=== PATIENT | male | born 2000 | race Caucasian/White ===

== ENCOUNTER 2024-06-29 12:45 | Emergency (ER) | payer OTHER, SELFPAY ==
[2024-06-29 12:46] VITALS: BP 152/101; PULSE 89; RESP 16; TEMP 36.8; O2SAT 99; BMI 31.7
--- NOTE | 2024-06-29 13:18 | CT_ITS ---
STUDY: CT ABDOMEN AND PELVIS WITH AND WITHOUT CONTRAST REASON FOR EXAM: Male, 24 years old. Rectal bleeding, abd pain RADIATION DOSAGE (If Supplied By Facility): CTDIvol = ( 18.65 ) mGy, DLP = ( 2365.69 ) mGycm TECHNIQUE: Transaxial images were obtained from the dome of the diaphragm to the symphysis pubis with oral contrast. Oral Gastrografin was administered. Sagittal and coronal images were reconstructed. Individualized dose optimization techniques were used for this CT. COMPARISON: None. FINDINGS: The visualized lung bases are unremarkable. The visualized portions of the heart are within normal limits. There is decreased attenuation of the liver consistent with steatosis. Normal gallbladder and extrahepatic biliary system. Normal spleen. Normal pancreas. Normal bilateral adrenal glands. Normal right kidney. Normal left kidney. Normal visualized stomach. Normal small intestine. There are scattered colonic diverticula consistent with diverticulosis. The appendix is visualized and appears normal. Normal abdominal aorta. Normal inferior vena cava. Normal retroperitoneum. Normal urinary bladder. Normal abdominal wall. Straightening of the normal lumbar lordosis. CT/CT Abd/Pelvis W/WO Contrast IMPRESSION: Diffuse fatty infiltration of the liver. Scattered sigmoid diverticula. Electronically Signed: Huey Burns MD at 15:27 EST ,
--- NOTE | 2024-06-29 13:22 | ED.VIS.GI ---
HPI <Dr. Marc Salgado DO - Last Filed: 06/29/24 15:29> HPI - GI History of Present Illness Chief Complaint: GI Bleed Informant: patient Narrative Narrative: Presents with bright red blood per rectum since yesterday. No clots. Reports some vague lower abdominal pain. No fevers or chills. Denies family history of Crohn's disease also colitis. Denies any family history of known colon cancers. No blood thinners. No nausea or vomiting. He has had history of hemorrhoids and he states at times only notes a spot of blood. However not this significant. No lightheaded symptoms. Prior similar symptoms: No PFSH <Dr. Marc Salgado DO - Last Filed: 06/29/24 15:29> PFSH Allergy/AdvReac Type Severity Reaction Status Date / Time No Known Allergies Allergy Verified 06/29/24 12:47 Social History Smoking Status: Never smoker ROS <Dr. Marc Salgado DO - Last Filed: 06/29/24 15:29> ROS ED Constitutional Constitutional ED: Denies chills, fever(s) or sweats Eyes Eyes: Denies change in vision ENT ENT ED: Denies dysphagia or sore throat Cardiovascular Cardiovascular: Denies chest pain, leg edema, palpitations or racing heartbeat Respiratory/Chest Respiratory/Chest: Denies cough, dyspnea or dyspnea on exertion Gastrointestinal Gastrointestinal: Reports abdominal pain and other Details: Bright red blood per rectum ; Denies diarrhea, nausea or vomiting Genitourinary Genitourinary ED: Denies dysuria, hematuria or urinary frequency Musculoskeletal Musculoskeletal: Denies back pain, extremity pain or neck pain Integumentary Denies rash or wounds Neurologic Neurologic: Denies headache(s), paresthesias or weakness EXAM <Dr. Marc Salgado DO - Last Filed: 06/29/24 15:29> Physical Exam Const Vital Signs: 06/29/24 12:46 06/29/24 14:45 Temperature 98.2 F 98.6 F Temperature Source Oral Temporal Pulse Rate 89 64 Respiratory Rate 16 18 Blood Pressure 152/101 H 118/76 Blood Pressure Mean 118 90 Pulse Ox 99 97 Oxygen Delivery Method Room Air Room Air Positive well nourished and well developed General Appearance ED: well developed and NAD HEENT Reports moist mucous membranes normocephalic and atraumatic Eyes EOMs intact bilaterally and conjunctivae normal General Eye ED: Yes normal appearance of both eyes; Negative for pale conjunctiva Neck no lymphadenopathy and supple General: Negative for tenderness Chest Wall Chest: Negative for tenderness Resp normal respiratory effort and normal air movement Effort and Inspection: symmetric chest movement; Negative for respiratory distress Cardio regular rate, regular rhythm and no murmurs Peripheral Pulses: pulses 2+ throughout GI normal to inspection, nondistended, normoactive bowel sounds and non-tender GI Narrative: No guarding or rebound Rectal exam no external hemorrhoids seen no gross blood seen externally. Anoscopy: Anoscope placed in, inner trochar removed, this was slowly brought out posteriorly prison out noted lesion with skin irritation that started bleeding. Palpation: Negative for guarding or rebound tenderness present Back/Spine no CVA tenderness and no thoracic nor lumbar tenderness Extremity normal to inspection General Extremety ED: Negative for edema or tenderness General Extremity: Negative for edema Neuro oriented x3 and no sensory deficits noted Sensorium / Orientation: awake and alert Skin no rashes or lesions noted and no wounds <Dr. Javy Floyd MD - Last Filed: 06/29/24 16:01> Physical Exam Const Vital Signs: 06/29/24 12:46 06/29/24 14:45 Temperature 98.2 F 98.6 F Temperature Source Oral Temporal Pulse Rate 89 64 Respiratory Rate 16 18 Blood Pressure 152/101 H 118/76 Blood Pressure Mean 118 90 Pulse Ox 99 97 Oxygen Delivery Method Room Air Room Air MDM <Dr. Marc Salgado DO - Last Filed: 06/29/24 15:29> [facility] MDM Narrative Medical decision making narrative: Interventions / MDM: Differential diagnosis: GI bleed, rectal lesion Diagnosis considered but do not suspect: N/A My EKG interpretation: N/A Imaging independently reviewed and interpreted by myself: CT abdomen pelvis with IV and oral contrast: Pending External documents reviewed: N/A Test considered but not ordered:N/A ED course: Patient with no hemorrhoids seen on exam. Vague abdominal pain with bloody stools. Will obtain contrast CT scan and labs. Will send for stool studies with reported new bloody stools. Discussed endoscopy in the ED for which she agreed. This will be set up. 1400: Anoscopy had a bleeding lesion posterior rectum. Hemoglobin 15.5. Reports discussed with father over the phone there is polypectomies in his father and grandfather. No cancer history. 1430: Pending CT scan. I spoke with GI, Dr. Vigil with lesion noted with bleeding. He recommended admission for planned colonoscopy tomorrow. I will speak with hospitalist. 1520: I spoke with hospital Dr. Eunice Ca. Will await CT scan, will repeat H&H. She will coordinate with GI and ED team for disposition plans as he is currently stable. Re-evaluation: stable Disposition discussed with patient/family/significant other: Patient and significant other Case discussed with consulting clinician: Gastroenterology, hospitalist This note was generated with Weaved dictation software. It may contain incorrect words, spelling, and punctuation that were not noted in checking the note before signing. Lab Data Attestation: I reviewed the patient's lab results. Labs: Laboratory Results - last 24 hr 06/29/24 06/29/24 06/29/24 13:26 15:13 15:33 WBC 8.1 RBC 5.18 Hgb 15.5 15.2 Hct 46.4 MCV 89.6 MCH 29.9 MCHC 33.4 RDW Std Deviation 39.7 RDW Coeff of Andres 12.1 Plt Count 273 MPV 11.1 Immature Gran % (Auto) 0.600 Neut % (Auto) 61.6 Lymph % (Auto) 24.3 [place] % (Auto) 11.8 H Eos % (Auto) 1.5 Baso % (Auto) 0.2 Absolute Neuts (auto) 5.0 Absolute Lymphs (auto) 1.97 Nucleated RBC % 0 PT 14.0 INR 1.1 APTT 27.4 Sodium 138 Potassium 3.9 Chloride 108 H Carbon Dioxide 23.0 Anion Gap 8 BUN 12 Creatinine 0.83 Estim Creat Clear Calc 189.53 Est GFR (MDRD) Af Amer 147 Est GFR (MDRD) Non-Af 122 BUN/Creatinine Ratio 14.4 Glucose 97 Calcium 9.6 Blood Type A NEGATIVE Radiography Diagnostic Testing: Clinical Impression(s) from Imaging Studies Abdomen/Pelvis CT 06/29/24 13:18 IMPRESSION: Diffuse fatty infiltration of the liver. Scattered sigmoid diverticula. Electronically Signed: Huey Burns MD at 15:27 EST , <Dr. Javy Floyd MD - Last Filed: 06/29/24 16:01> [facility] Lab Data Labs: Laboratory Results - last 24 hr 06/29/24 06/29/24 06/29/24 13:26 15:13 15:33 WBC 8.1 RBC 5.18 Hgb 15.5 15.2 Hct 46.4 MCV 89.6 MCH 29.9 MCHC 33.4 RDW Std Deviation 39.7 RDW Coeff of Andres 12.1 Plt Count 273 MPV 11.1 Immature Gran % (Auto) 0.600 Neut % (Auto) 61.6 Lymph % (Auto) 24.3 [place] % (Auto) 11.8 H Eos % (Auto) 1.5 Baso % (Auto) 0.2 Absolute Neuts (auto) 5.0 Absolute Lymphs (auto) 1.97 Nucleated RBC % 0 PT 14.0 INR 1.1 APTT 27.4 Sodium 138 Potassium 3.9 Chloride 108 H Carbon Dioxide 23.0 Anion Gap 8 BUN 12 Creatinine 0.83 Estim Creat Clear Calc 189.53 Est GFR (MDRD) Af Amer 147 Est GFR (MDRD) Non-Af 122 BUN/Creatinine Ratio 14.4 Glucose 97 Calcium 9.6 Blood Type A NEGATIVE Radiography Diagnostic Testing: Clinical Impression(s) from Imaging Studies Abdomen/Pelvis CT 06/29/24 13:18 IMPRESSION: Diffuse fatty infiltration of the liver. Scattered sigmoid diverticula. Electronically Signed: Huey Burns MD at 15:27 EST , Management Discussion w/another healthcare provider: Hospitalist (Spoke with Dr. Ca. We went over the CAT scan results. Patient had no drop in his hemoglobin when repeated. His [place] score is 4 with a 98% safety rating for discharge. In light of this spoke with office staff per Dr. Vigil. Patient has scheduled for an appointment to be seen on Thursday at 2:3) Discharge Plan Triage Chief Complaint: GI Bleed ED Provider: Marc Salgado Dx/Rx/DC Orders Clinical Impression: Acute GI bleeding, Rectal lesion, Abdominal pain, Diverticulosis, sigmoid Instructions: ED Lower GI Bleeding (Stable) Primary Care Provider: Care Physician,Antionette Primary Referrals: Lino Vigil DO [Med Staff - Active Staff] - 07/01/24 2:30 pm NOT,DEFINED [Non-Staff] - Activity Restrictions/Additional Instructions: You have been seen scheduled to see nurse practitioner on Thursday at 2:30 PM. The nurse practitioner is affiliated with Dr. Vigil. Print Language: Divehi Disposition Disposition: Home, Self Care
[2024-06-29 13:38] LABS: Absolute Lymphocyte Count 1.97 X10^3/uL (0.83-4.51); Basophil# 0.02 X10^3/uL; Basophil% 0.2 % (0-1); Eosinophil# 0.12 X10^3/uL; Eosinophils% 1.5 % (0-5); Hematocrit 46.4 % (40-54); Hemoglobin 15.5 g/dL (13.0-16.5); Lymphocyte # 1.97 X10^3/ul (0.83-4.51); Lymphocyte % 24.3 % (19-41); Mean Corp Hgb Conc 33.4 g/dL (32-36); Mean Corpuscular Hgb 29.9 pg (27.0-32.0); Mean Corpuscular Volume 89.6 fL (80-94); Mean Platelet Vol. 11.1 fl (6.2-12.0); Monocyte# 0.96 X10^3/uL; Monocyte% 11.8 % (0-10); NRBC Flagged by Analyzer 0 % (0-5); Neutrophil # 4.99 X10^3/uL (2.7-7.7); Neutrophil % 61.6 % (47-70); Platelet Count 273 K/mm3 (150-450); RBC Distribution Width CV 12.1 % (11.6-14.6); RBC Distribution Width SD 39.7 fl (35.1-43.9); Red Blood Count 5.18 M/mm3 (4.6-6.2); White Blood Count 8.1 K/mm3 (4.4-11.0)
[2024-06-29 14:09] LABS: Anion Gap 8 (5-15); BUN 12 mg/dL (7-18); BUN/Creat Ratio 14.4 RATIO (10-20); Calcium,Total 9.6 mg/dL (8.5-10.1); Chloride 108 mmol/L (98-107); Creatinine, Serum 0.83 mg/dL (0.70-1.30); EST Glomerular Filtration Rate 122 mL/min (>60); Est Glom Filt Rate - Afr Amer 147 mL/min (>60); Estimated Creatinine Clearance 189.53 ml/min; Glucose 97 mg/dL (74-106); Potassium 3.9 mmol/L (3.5-5.1); Sodium Level 138 mmol/L (136-145)
[2024-06-29 14:45] VITALS: BP 118/76; PULSE 64; RESP 18; TEMP 37; O2SAT 97
[2024-06-29 15:36] LABS: International Normalized Ratio 1.1
[2024-06-29 15:37] LABS: Hemoglobin 15.2 g/dL (13.0-16.5)
[2024-06-29 15:37] LABS: Partial Thromboplast Time 27.4 Seconds (24.1-36.2)
[2024-06-29 16:00] VITALS: BP 147/99; PULSE 80; RESP 16; TEMP 36.8; O2SAT 99
== END 2024-06-29 16:11 | disposition home or self-care (01) ==
PROVIDERS: Internal Medicine; Emergency Provider Emergency Medicine; Referring Provider Emergency Medicine; Visit Provider Emergency Medicine
DX: K62.5 Hemorrhage of anus and rectum (principal); K63.89 Other specified diseases of intestine; K57.30 Diverticulosis of large intestine without perforation or abscess without bleeding; Z87.19 Personal history of other diseases of the digestive system; Z83.719 Family history of colon polyps, unspecified
CPT/HCPCS: 46600; 74178; 80048; 85018; 85025; 85610; 85730; 86850; 86900; 86901; 99283; Q9967

== ENCOUNTER → 2024-07-01 | Outpatient (CLI) | payer OTHER, SELFPAY ==
[2024-07-01 16:31] LABS: Absolute Lymphocyte Count 1.66 X10^3/uL (0.83-4.51); Absolute Neutrophil Count 5.1 X10^3/uL (2.0-7.7); Basophil# 0.04 X10^3/uL; Basophil% 0.5 % (0-1); Eosinophil# 0.15 X10^3/uL; Hematocrit 44.6 % (40-54); Hemoglobin 15.6 g/dL (13.0-16.5); Lymphocyte # 1.66 X10^3/ul (0.83-4.51); Lymphocyte % 21.7 % (19-41); Mean Corpuscular Hgb 30.8 pg (27.0-32.0); Mean Platelet Vol. 11.9 fl (6.2-12.0); Monocyte# 0.69 X10^3/uL; NRBC Flagged by Analyzer 0 % (0-5); Neutrophil # 5.06 X10^3/uL (2.7-7.7); Neutrophil % 66.3 % (47-70); Platelet Count 273 K/mm3 (150-450); RBC Distribution Width CV 12.1 % (11.6-14.6); RBC Distribution Width SD 38.9 fl (35.1-43.9); Red Blood Count 5.07 M/mm3 (4.6-6.2); White Blood Count 7.6 K/mm3 (4.4-11.0)
== END | disposition home or self-care (01) ==
LOC: LAB 15:07
PROVIDERS: Referring Provider Student in an Organized Health Care Education/Training Program; Visit Provider Student in an Organized Health Care Education/Training Program
DX: K92.2 Gastrointestinal hemorrhage, unspecified (principal)
CPT/HCPCS: 36415; 85025

== ENCOUNTER 2024-08-31 12:51 | Day surgery (SDC) | payer OTHER, SELFPAY ==
[2024-08-31] VITALS (9 sets, daily range): BP systolic 124–145; BP diastolic 84–96; PULSE 82–99; RESP 16–20; TEMP 36.5–37.1; O2SAT 94–100; BMI 29.5
--- NOTE | 2024-08-31 14:00 | COLBX_PTH ---
PATIENT: TUAN WATT LOC: EN U#:[id number] AGE/SX: 24/M ROOM: RE08/31/[address]: Dr. Lino Vigil DO : 2000 BED: DIS: 08/31/2024 SPEC #: [id number] RECD: 09/01/24 08:44 STATUS: JENNIFER MAIKOL #: [id number] NAMITA: 08/31/24 14:[address]: Lino Vigil DEPT: SURGICAL PATHOLOGY RECD BY: Keisha Tran ENTERED: 09/01/24 10:42 SP TYPE: COLON BX OTHR DR: No Primary Care Phys Tissues: A - Ileum, NOS B - Sigmoid colon biopsy Procedures: Surgery Specimen Level IV HEADER OPERATION: Colonoscopy PRE-OP DIAGNOSIS: Lower GI bleeding TISSUE SUBMITTED: A- Terminal ileum biopsy, B- Sigmoid biopsy MICROSCOPIC DIAGNOSIS A. Terminal ileum, biopsy: Fragments of small intestinal mucosa, no pathologic diagnosis. B. Sigmoid colon, biopsy: Fragments of colonic mucosa, no pathologic diagnosis. SJ.mr 09/02/2024 MICROSCOPIC DESCRIPTION Slides are reviewed. GROSS DESCRIPTION A. Received in fixative is one container labeled with the patient's name and designated Terminal ileum biopsy. The specimen consists of two irregular fragments of light evangelista soft tissue that in aggregate measure 0.5 x 0.3 x 0.2 cm. The specimen is totally submitted in one cassette. B. Received in fixative is one container labeled with the patient's name and designated Sigmoid biopsy. The specimen consists of multiple irregular fragments of light evangelista soft tissue that in aggregate measure 0.6 x 0.3 x 0.2 cm. The specimen is totally submitted in one cassette. mr 09/01/2024 TC:4 CPT:97160u6
--- NOTE | 2024-08-31 14:33 | PRE.ANES_ITS ---
ASA Classification* ASA Classification ASA Classification: 2 Assessment & Plan Anesthesia* Anesthesia Assessment Anesthesia Assessment: Discussed sedation and/or anesthesia options, risks, benefits, and alternatives with patient/parents/legal guardian/POA. Questions invited. The patient/parents/legal guardian/POA seems to understand and agrees to proceed with anesthesia plan. Reviewed the physical assessment, medical history, allergy history and patient home medications list prior to surgery/procedure/anesthetic and documented any changes. Performed airway and anesthesia risk assessments. Anesthesia Type Anesthesia Type: MAC History Source History Obtained from:: Patient and Chart Anesthesia Focused Assessment* Temperature: 97.7 F Pulse Rate: 93 Blood Pressure: 145/93 Respiratory Rate: 16 Pulse Ox: 99 Oxygen Delivery Method: Room Air Airway Assessment Mouth opens: >3 cm Mallampati Score: II Teeth Condition: Intact Neck Range of motion (ROM): Full ROM Focused Labs Anesthesia Preop lab: CBC WBC 7.6 K/mm3 (4.4-11.0) 07/01/24 15:10 RBC 5.07 M/mm3 (4.6-6.2) 07/01/24 15:10 Hgb 15.6 g/dL (13.0-16.5) 07/01/24 15:10 Hct 44.6 % (40-54) 07/01/24 15:10 Plt Count 273 K/mm3 (150-450) 07/01/24 15:10 CHEMISTRY Potassium 3.9 mmol/L (3.5-5.1) 06/29/24 13:26 Sodium 138 mmol/L (136-145) 06/29/24 13:26 BUN 12 mg/dL (7-18) 06/29/24 13:26 Creatinine 0.83 mg/dL (0.70-1.30) 06/29/24 13:26 Glucose 97 mg/dL (74-106) 06/29/24 13:26 COAG PT 14.0 SECONDS (11.7-14.9) 06/29/24 15:13 Pre-Assessment Diagnosis/Proposed Procedure Planned Operative Procedure(s): CSCOPE Anesthesia History 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 When Was Last Pacemaker Check QUESTION #4 FULL TEXT: You/Your Family Experience fever (hyperthermia) with Anesthesia Last Oral Intake Last Oral intake: Last Oral Intake NPO since 09:00 08/31/24 14:25 Meds taken in AM with sips of No 08/31/24 14:25 water? Meds patient instructed to take am of surgery PONV PONV - ammunition assembly laborer: PONV - ammunition assembly laborer Female No 08/29/24 09:57 HX of Motion Sickness No 08/29/24 09:57 HX of N/V After Surgery No 08/29/24 09:57 Non-Smoker Yes 08/29/24 09:57 Duration of Surgery greater No 08/29/24 09:57 than 60 minutes Number of Risk Factors 1 08/29/24 09:57 PONV Score Low Risk 08/29/24 09:57 Height & Weight Height & Weight: Anesthesia: Height & Weight Height 6 ft 3 in 08/31/24 14:25 Weight: 107 kg 08/31/24 14:25 Body Mass Index (BMI) 29.5 08/31/24 14:25 Respiratory Assessment Respiratory Assessment - ammunition assembly laborer: Respiratory Tract Infection Hx - ammunition assembly laborer Hx Respiratory Tract Infection No 08/29/24 09:57 STOP Sleep Apnea STOP Sleep Apnea - ammunition assembly laborer: STOP Sleep Apnea - ammunition assembly laborer Hx Hypertension No 08/29/24 09:57 Hx Sleep Apnea No 08/29/24 09:57 CPAP BIPAP Do you snore loudly (louder No 08/29/24 09:57 than talking or can be heard Do you often feel tired/ No 08/29/24 09:57 fatigued/ sleepy during daytime? Has anyone observed you stop No 08/29/24 09:57 breathing during sleep? STOP Results Negative 08/29/24 09:57 QUESTION #5 FULL TEXT : Do you snore loudly (louder than talking or can be heard through closed doors)? Tobacco Use History Tobacco Use History - ammunition assembly laborer: Tobacco Use History - ammunition assembly laborer Tobacco Use Smoking Status Never smoker 08/29/24 09:57 Hx Tobacco Use No 08/29/24 09:57 Years Smoking Packs Smoked per Day Smoking Cessation Date was within the last 15 years Hx Smoking Cessation Date Hx Smoking Cessation Counseling Hematologic Medial History Hematologic Hx - ammunition assembly laborer: Hematologic Medical Hx - hand clipper Hx of Blood Transfusion No 08/29/24 09:57 Hx of Transfusion in last 3 No 08/29/24 09:57 Months Date of Last Transfusion (if within last 3 months) Ever experience any problems No 08/29/24 09:57 with transfusion(s)? Specify any problems Hx of Preganancy in last 3 N/A 08/29/24 09:57 Months Nurse Filling Out Transfusion DSCHRIBER 08/29/24 09:57 & Questions: Date: 08/29/24 08/29/24 09:57 Time: 09:58 08/29/24 09:57 Patient unable to answer at this time (ie. confused, unrespo /Reproduction History /Reproductive History - ammunition assembly laborer: /Reproductive Hx- ammunition assembly laborer Hx Now No 08/29/24 09:57 Gestational Age (in weeks): EDC: Hx Hx Para Hx Section SAB No 08/29/24 09:57 PFSH Medical History Wears glasses Depression Anxiety Restless legs History of GI bleed Diverticulosis Asthma Non-smoker Hx of fracture of arm Home Medications ?Medication ?Instructions ?Recorded ?Last Taken ?Type bupropion HCl 150 mg 24 hr tablet, 150 mg PO QAM 07/01/24 08/30/24 History extended release (Wellbutrin XL) Allergy/AdvReac Type Severity Reaction Status Date / Time No Known Allergies Allergy Verified 08/31/24 14:24 Social History Smoking Status: Never smoker Review of Systems (Anesthesia) ROS Narrative System reviewed and no additional complaints, except as documented.
--- NOTE | 2024-08-31 15:00 | HP.PCM_ITS ---
HPI - General General Date of Admission: 08/31/24 Date of Service: 08/31/24 Chief Complaint: Lower GI bleeding HPI Narrative TUAN WATT, is a 24 M who presents for the evaluation of lower GI bleeding *[facility] ED 06.29.24 with rectal bleeding. Rectal lesion found on anoscopy in the ER.. I recommended inpatient colonoscopy but ultimately was discharge for outpatient procedure. CT abdomen pelvis 06.29.24; Diffuse fatty infiltration of the liver. Scattered sigmoid diverticula. OV 07.01.24 Pt continues to have some rectal bleeding but not as much. He is having normal bm which are painful. He does have a hx of some constipation and hemorrhoids. He has tried preparation H cream which has not helped. He denies other GI issues. [facility] Medical History Wears glasses Depression Anxiety Restless legs History of GI bleed Diverticulosis Asthma Non-smoker Hx of fracture of arm Home Medications ?Medication ?Instructions ?Recorded ?Last Taken ?Type bupropion HCl 150 mg 24 hr tablet, 150 mg PO QAM 07/01/24 08/30/24 History extended release (Wellbutrin XL) Allergy/AdvReac Type Severity Reaction Status Date / Time No Known Allergies Allergy Verified 08/31/24 14:24 Social History Smoking Status: Never smoker ROS Constitutional Constitutional: Denies fatigue, fever(s), poor appetite, weight gain or weight loss Gastrointestinal Gastrointestinal: Denies belching, bloating, change in bowel habits, change in stool character, chewing difficulty, coffee ground emesis, constipation, cramping, diarrhea, dyspepsia, dysphagia, early satiety, excessive flatus, fecal incontinence, heartburn, hematemesis, hematochezia, hemorrhoids, loose stools, melena, nausea, odynophagia, rectal bleeding, tenesmus, vomiting or weight changes Vital Signs Vital Signs Vital Signs: 08/31/24 14:25 08/31/24 14:25 08/31/24 14:38 Temperature 97.7 F L 97.7 F L Temperature Source Temporal Pulse Rate 93 93 Respiratory Rate 16 16 Respiratory Pattern Normal Blood Pressure 145/93 H 145/93 H Blood Pressure Mean 110 Blood Pressure Source Monitor Blood Pressure Position Semi-Fowlers Blood Pressure Location Left Arm Pulse Ox 99 99 Oxygen Delivery Method Room Air Room Air Weight Weight: 235 lb 14.314 oz Body Mass Index (BMI) 29.5 Physical Exam Const alert, oriented x3, no apparent distress and healthy appearing General Appearance: cooperative GI normal to inspection, nondistended, normoactive bowel sounds, soft to palpation, non-tender and non-distended Percussion: normal to percussion Rectal Exam: deferred Assessment & Plan Assessment/Plan (1) Lower GI bleeding: PLAN: Assessment and Plan Assessment and Plan (1) Acute GI bleeding: Status: Acute Plan: This is a 24 yo male pt here today for ER f/u. He was seen in [facility] ER 06.29.24 for rectal bleeding. On anoscopy he was found to have a bleeding rectal lesion. CT scan showing diverticulosis and fatty liver. He will need to undergo colonoscopy to rule out malignancy, hemorrhoid or skin tag within the rectum. I offered suppositories or ointment for rectal pain but he declined at this time. I will order CBC to moniter for anemia.
--- NOTE | 2024-08-31 15:36 | OP.CCLET_ITS ---
08/31/2024 No Primary Care Physician Re : Colonoscopy procedure for Ulysses Marie Dear Care Physician This procedure was performed on Saturday, August 31, 2024. My impressions and recommendations are as follows: Impressions : - Congested mucosa in the sigmoid colon. Biopsied. - Anal fissure. Treated with argon plasma coagulation (APC). - The examined portion of the ileum was normal. Biopsied. Recommendations : - Discharge patient to home. - Resume previous diet. - Continue present medications. - Await pathology results. - Repeat colonoscopy at age 46 for screening purposes. My findings are described in the full procedure note, which is enclosed. If I can be of further assistance, please feel free to contact me at . Sincerely, Lino Vigil, 08/31/2024 3:35:40 PM This report has been signed electronically.
--- NOTE | 2024-08-31 15:36 | OP.COLON_ITS ---
Patient Name: Ulysses Marie Procedure Date: 08/31/2024 1:58 PM Date of : 2000 Age: 24 Procedure: Colonoscopy Indications: Hematochezia Providers: Lino Vigil DO Referring MD: Lino Vigil DO Medicines: Monitored Anesthesia Care Patient Profile: This is a 24 year old male. Refer to note in patient chart for documentation of history and physical. Last Colonoscopy: none. The patient's first colonoscopy is today. Complications: No immediate complications. Procedure: Pre-Anesthesia Assessment: - Prior to the procedure, a History and Physical was performed, and patient medications and allergies were reviewed. The patient is competent. The risks and benefits of the procedure and the sedation options and risks were discussed with the patient. All questions were answered and informed consent was obtained. Patient identification and proposed procedure were verified by the physician in the pre-procedure area. Mental Status Examination: alert and oriented. Airway Examination: normal oropharyngeal airway and neck mobility. Respiratory Examination: clear to auscultation. CV Examination: normal. Prophylactic Antibiotics: The patient does not require prophylactic antibiotics. Prior Anticoagulants: The patient has taken no anticoagulant or antiplatelet agents except for NSAID medication. ASA Grade Assessment: II - A patient with mild systemic disease. After reviewing the risks and benefits, the patient was deemed in satisfactory condition to undergo the procedure. The anesthesia plan was to use monitored anesthesia care (MAC). Immediately prior to administration of medications, the patient was re-assessed for adequacy to receive sedatives. The heart rate, respiratory rate, oxygen saturations, blood pressure, adequacy of pulmonary ventilation, and response to care were monitored throughout the procedure. The physical status of the patient was re-assessed after the procedure. After I obtained informed consent, the scope was passed under direct vision. Throughout the procedure, the patient's blood pressure, pulse, and oxygen saturations were monitored continuously. The colonoscope was introduced through the anus and advanced to the terminal ileum. The colonoscopy was performed without difficulty. The patient tolerated the procedure well. The quality of the bowel preparation was adequate. The terminal ileum, ileocecal valve, appendiceal orifice, and rectum were photographed. Scope In: 3:14:33 PM Scope Withdrawal Time 0 hours 10 minutes 55 seconds Scope Out: 3:28:39 PM Total Procedure Duration Time 0 hours 14 minutes 6 seconds Findings: The perianal and digital rectal examinations were normal. An area of mildly congested mucosa was found in the sigmoid colon. Biopsies were taken with a cold forceps for histology. Verification of patient identification for the specimen was done. Estimated blood loss was minimal. A 6 mm anal fissure was found in the anal canal. Coagulation for hemostasis using argon plasma at 0.3 liters/minute and 30 sorensen was successful. Estimated blood loss was minimal. The terminal ileum appeared normal. Biopsies were taken with a cold forceps for histology. Verification of patient identification for the specimen was done. Estimated blood loss was minimal. Impression: - Congested mucosa in the sigmoid colon. Biopsied. - Anal fissure. Treated with argon plasma coagulation (APC). - The examined portion of the ileum was normal. Biopsied. Recommendation: - Discharge patient to home. - Resume previous diet. - Continue present medications. - Await pathology results. - Repeat colonoscopy at age 46 for screening purposes. Procedure Code(s): --- Professional --- 15509, 59, Colonoscopy, flexible; with control of bleeding, any method 11514, Colonoscopy, flexible; with biopsy, single or multiple CPT copyright 2021 [employer]. All rights reserved. The codes documented in this report are preliminary and upon press operator automatic review may be revised to meet current compliance requirements. Lino Vigil DO 08/31/2024 3:35:40 PM This report has been signed electronically. Number of Addenda: 0 Note Initiated On: 08/31/2024 1:58 PM
--- NOTE | 2024-08-31 15:37 | PCM.POST.ANE ---
Anesthesia: Postop Eval I Current Vital Signs Temperature: 98.3 F Pulse Rate: 99 Blood Pressure: 127/89 Respiratory Rate: 20 Pulse Ox: 100 Assessment Airway patent: Yes Spontaneous unlabored respirations: Yes nausea: No Vomiting: No Anesthesia Complication: No Fluid Hydration Crystalloid volume administer (ml): 30 Total IV fluid infused: 30 Progress Note Anesthesia document: Postop Eval 1 completed: Yes
--- NOTE | 2024-08-31 15:57 | POSTOPAN2_ITS ---
Anesthesia Postop Eval I Sum Postop Eval Completion status Anesthesia document: Postop Eval 1 completed: Yes Anesthesia Postop Eval I Summary Anesthesia Postop Eval I Summary: Anesthesia Postop Eval I: Assessment Summary Airway patent Yes 08/31/24 15:37 [email or web address] Spontaneous unlabored Yes 08/31/24 15:37 [email or web address] respirations Mental status nausea No 08/31/24 15:37 [email or web address] Vomiting No 08/31/24 15:37 [email or web address] Anesthesia Postop Eval I: Fluid Summary Crystalloid volume administer 30 08/31/24 15:37 [email or web address] (ml) Colloids volume administered ( ml) Blood Product volume administered (ml) Total IV fluid infused 30 08/31/24 15:37 [email or web address] Anesthesia Postop Eval I: Summary Notes Anesthesia Complication No 08/31/24 15:37 [email or web address] Anesthesia Complication Comment: Post-operative progress note Anesthesia: Postop Eval II Evaluation Mental status: Awake Pain Level: 0 nausea: No Vomiting: No Complications Anesthesia Complication: No
--- NOTE | 2024-08-31 15:57 | PCM.POSTANE2 ---
Anesthesia Postop Eval I Sum Postop Eval Completion status Anesthesia document: Postop Eval 1 completed: Yes Anesthesia Postop Eval I Summary Anesthesia Postop Eval I Summary: Anesthesia Postop Eval I: Assessment Summary Airway patent Yes 08/31/24 15:37 [email or web address] Spontaneous unlabored Yes 08/31/24 15:37 [email or web address] respirations Mental status nausea No 08/31/24 15:37 [email or web address] Vomiting No 08/31/24 15:37 [email or web address] Anesthesia Postop Eval I: Fluid Summary Crystalloid volume administer 30 08/31/24 15:37 [email or web address] (ml) Colloids volume administered ( ml) Blood Product volume administered (ml) Total IV fluid infused 30 08/31/24 15:37 [email or web address] Anesthesia Postop Eval I: Summary Notes Anesthesia Complication No 08/31/24 15:37 [email or web address] Anesthesia Complication Comment: Post-operative progress note Anesthesia: Postop Eval II Evaluation Mental status: Awake Pain Level: 0 nausea: No Vomiting: No Complications Anesthesia Complication: No
== END 2024-08-31 16:46 | disposition home or self-care (01) ==
LOC: EN 14:06 → AC 14:06
PROVIDERS: Referring Provider Internal Medicine Gastroenterology; Visit Provider Internal Medicine Gastroenterology
PROC: 0DJD8ZZ Inspection of Lower Intestinal Tract, Via Natural or Artificial Opening Endoscopic (ICD-10-PCS; CPT 45378; principal; 2024-08-31 13:55)
DX: K60.2 Anal fissure, unspecified (principal); K63.89 Other specified diseases of intestine; F32.A Depression, unspecified; F41.9 Anxiety disorder, unspecified; Z87.19 Personal history of other diseases of the digestive system; Z79.899 Other long term (current) drug therapy
CPT/HCPCS: 45380; 45382; 88305; A4216